=== PATIENT | female | born 1955 | race Caucasian/White ===

== ENCOUNTER 2020-03-01 12:03 | Outpatient (REF) | payer BC, SELFPAY ==
--- NOTE | 2020-03-01 08:45 | PAPFT_PTH ---
PATIENT: Gladis Tucker LOC: [facility] U#:[id number] AGE/SX: 64/F ROOM: RE03/01/[address]: Nila Case : 1955 BED: DIS: 03/01/2020 SPEC #: [id number] RECD: 03/01/20 12:57 STATUS: FARHANA VASQUES #: [id number] LUISITO: 03/01/20 08:[address]: Nila Case DEPT: REPLACED BY [facility] Cytology RECD BY: Lissette Cotton Tissues: 1 - CX/ENDOCX FOR PAP SMEARS Procedures: PAP THIN PREP/[facility] Screening HPV DNA PROBE Comments: [id number]
[2020-03-01 13:53] LABS: HCT 44.5 % (36.0-46.0); HGB 14.9 g/dL (11.2-15.7); MCHC 33.5 % (32.0-36.0); MCV 95.7 fL (80-95); MPV 9.9 fL (8.0-11.0); Platelet Count 244 10^3/uL (130-400); RBC 4.65 10^6/uL (3.93-5.22); RDW-SD 42.2 fL; WBC 6.18 10^3/uL (4.4-10.8)
[2020-03-01 14:43] LABS: ALT 25 U/L (14-59); AST 16 U/L (15-37); Alkaline Phosphatase 67 U/L (46-116); Anion Gap 8.3 mmol/L (3-11); BUN 18 mg/dL (7-18); Bilirubin, Total 0.7 mg/dL (0.2-1.0); CO2 27.7 mmol/L (21.0-32.0); CREATININE 0.83 mg/dL (0.55-1.02); Calcium 9.7 mg/dL (8.5-10.1); Calculated LDL 140 mg/dL (<100); Chloride 106 mmol/L (98-107); Cholesterol 259 mg/dL (<200); Glucose 96 mg/dL (74-106); HDL Cholesterol 99 mg/dL (40-60); Potassium 4.5 mmol/L (3.5-5.1); Sodium 142 mmol/L (136-145); Total Protein 7.3 g/dL (6.4-8.2); Triglyceride 103 mg/dL (<150); Vitamin B12 263 pg/mL (193-986)
[2020-03-01 15:02] LABS: Vitamin D 25 Total 19.9 ng/ml (30-100)
== END 2020-03-01 12:23 ==
LOC: NCHCN 12:03
PROVIDERS: PCP Nurse Practitioner Family; Visit Provider Nurse Practitioner Family
DX: Z00.00 Encounter for general adult medical examination without abnormal findings (principal); Z13.29 Encounter for screening for other suspected endocrine disorder; Z13.220 Encounter for screening for lipoid disorders; Z13.228 Encounter for screening for other metabolic disorders; Z12.4 Encounter for screening for malignant neoplasm of cervix; Z11.51 Encounter for screening for human papillomavirus (HPV)
CPT/HCPCS: 80053; 80061; 82306; 85027; 88142; 82607; 84443; 87624

== ENCOUNTER 2020-05-02 09:13 | Outpatient (REF) | payer BC, SELFPAY ==
[2020-05-02 13:39] LABS: Vitamin B12 422 pg/mL (193-986)
[2020-05-03 04:55] LABS: Vitamin D 25 Total 34.7 ng/ml (30-100)
== END 2020-05-02 09:14 | disposition home or self-care (01) ==
LOC: NCHCN 09:13
PROVIDERS: PCP Nurse Practitioner Family; Visit Provider Nurse Practitioner Family
DX: Z00.00 Encounter for general adult medical examination without abnormal findings (principal); F32.9 Major depressive disorder, single episode, unspecified; E55.9 Vitamin D deficiency, unspecified
CPT/HCPCS: 82306; 82607

== ENCOUNTER 2022-04-14 17:44 | Outpatient (REF) | payer BC, SELFPAY ==
[2022-04-14 21:47] LABS: Hemoglobin A1C 5.1 % (<5.7)
[2022-04-14 22:06] LABS: Vitamin D 25 Total 22.2 ng/mL (30-100)
[2022-04-14 22:13] LABS: ALT 28 U/L (14-59); AST 21 U/L (15-37); Alkaline Phosphatase 79 U/L (46-116); Anion Gap 4.7 mmol/L (3-11); BUN 23 mg/dL (7-18); Bilirubin, Total 0.4 mg/dL (0.2-1.0); CO2 31.3 mmol/L (21.0-32.0); CREATININE 0.8 mg/dL (0.55-1.02); Calcium 9.9 mg/dL (8.5-10.1); Calculated LDL 157 mg/dL (<100); Chloride 105 mmol/L (98-107); Cholesterol 285 mg/dL (<200); Estimated GFR 82.23 (mL/min/1.73m2); Glucose 93 mg/dL (74-106); HDL Cholesterol 91 mg/dL (40-60); Potassium 4.4 mmol/L (3.5-5.1); Sodium 141 mmol/L (136-145); TSH (W/Ref FT4) 0.87 uIU/mL (0.36-3.74); Total Protein 7.6 g/dL (6.4-8.2); Triglyceride 189 mg/dL (<150); Vitamin B12 457 pg/mL (193-986)
== END 2022-04-14 17:45 | disposition home or self-care (01) ==
LOC: NCHCN 17:44
PROVIDERS: PCP Nurse Practitioner Family; Visit Provider Nurse Practitioner Family
DX: Z00.00 Encounter for general adult medical examination without abnormal findings (principal); E55.9 Vitamin D deficiency, unspecified; F32.89 Other specified depressive episodes; R63.5 Abnormal weight gain; Z13.1 Encounter for screening for diabetes mellitus; Z13.220 Encounter for screening for lipoid disorders
CPT/HCPCS: 80053; 80061; 82306; 82607; 83036; 84443

== ENCOUNTER 2022-12-23 13:50 | Outpatient (REF) | payer MEDICARE, BC, SELFPAY ==
[2022-12-23 15:55] LABS: ALT 19 U/L (14-59); AST 20 U/L (15-37); Albumin 3.8 g/dL (3.4-5.0); Alkaline Phosphatase 65 U/L (46-116); BUN 19 mg/dL (7-18); Bilirubin, Total 0.5 mg/dL (0.2-1.0); CREATININE 0.8 mg/dL (0.55-1.02); Calculated LDL 107 mg/dL (<100); Chloride 107 mmol/L (98-107); Cholesterol 210 mg/dL (<200); Estimated GFR 81.72 (mL/min/1.73m2); Glucose 99 mg/dL (74-106); HDL Cholesterol 93 mg/dL (40-60); Potassium 4.5 mmol/L (3.5-5.1); Sodium 143 mmol/L (136-145); Triglyceride 53 mg/dL (<150)
== END 2022-12-23 13:51 | disposition home or self-care (01) ==
LOC: NCHCN 13:50
PROVIDERS: PCP Nurse Practitioner Family; Visit Provider Family Medicine
DX: E78.5 Hyperlipidemia, unspecified (principal); C77.9 Secondary and unspecified malignant neoplasm of lymph node, unspecified
CPT/HCPCS: 80053; 80061

== ENCOUNTER 2024-12-07 12:15 | Outpatient (REF) | payer MEDICARE, BC, SELFPAY ==
[2024-12-07 16:21] LABS: ALT 20 U/L (14-59); AST 24 U/L (15-37); Albumin 3.7 g/dL (3.4-5.0); Alkaline Phosphatase 75 U/L (46-116); Anion Gap 8.3 mmol/L (3-11); BUN 19 mg/dL (7-18); Bilirubin, Total 0.6 mg/dL (0.2-1.0); CO2 28.7 mmol/L (21.0-32.0); Calcium 9.7 mg/dL (8.5-10.1); Calculated LDL 94 mg/dL (<100); Chloride 105 mmol/L (98-107); Cholesterol 184 mg/dL (<200); Estimated GFR 98.32 (mL/min/1.73m2); Glucose 94 mg/dL (74-106); HDL Cholesterol 77 mg/dL (>or=50); Potassium 4.3 mmol/L (3.5-5.1); Sodium 142 mmol/L (136-145); Total Protein 6.9 g/dL (6.4-8.2); Triglyceride 68 mg/dL (<150)
== END 2024-12-07 12:16 | disposition home or self-care (01) ==
LOC: NCHCN 12:15
PROVIDERS: PCP Nurse Practitioner Family; Visit Provider Family Medicine
DX: E78.5 Hyperlipidemia, unspecified (principal)
CPT/HCPCS: 80053; 80061